=== PATIENT | female | born 1960 | race Caucasian/White ===

== ENCOUNTER 2021-02-06 10:12 | Inpatient (IN) | payer OTHER ==
[~2021-02-06] VITALS: Ht 167.6 cm; Wt 87.1 kg
--- NOTE | 2021-02-06 11:25 | NUR ---
PATIENT WAS TESTED FOR COVID 19 ON 02/05/21 AND WAS NEGATIVE - SRS-CoV-2 RNA (BRIA).
[2021-02-06 19:14] VITALS: BP 126/48
--- NOTE | 2021-02-06 23:36 | NUR ---
ASSUMED CARE OF PT AT 1915. PT IS A&OX4. IS STABLE. DENIES PAIN. IS ON 3L OF O2/NC. PT IS UP WITH MAX ASSIST OF 2-3, GB, STAND PIVOT. FALL PRECAUTIONS & HOURLY ROUNDING CONTINUED THIS SHIFT. PT IS TURNED Q2H. HEELS OFF LOADED. SCDS IN PLACE. HAS 2 OPEN AREAS IN THE INTERDGUTEAL FOLDS. BARRIER CREAM APPLIED. DAY NURSE REPORTED HAVING TAKING PICTURES & PLACED IN THE CHART. NICOTINE PATCH TO R SHOULDER. LIDOCAINE PATCH TO MID CHEST REMOVED. PT IS INCONTINENT TO BOTH B&B. REPORTED NOT ABLE TO FEEL WHEN NEEDS TO URINATE/HAVE A BM, NEITHER CAN FEEL WHEN HAS GONE. FREQUENT CHECKS CONDUCTED. PT COULD NOT RECALL DOSAGES OF HOME MEDICATIONS. REPORTED TAKES METROPOLOL DAILY, LASIX DAILY, AND A STATIN AT HS (NOT SURE WHICH). PT REPORTED SHE HAS NKA/NKDA. PHARMACY ENTERED. PT IS CURRENTLY SLEEPING. CALL LIGHT WITHIN REACH. WILL CONTINUE TO MONITOR.
--- NOTE | 2021-02-07 04:42 | NUR ---
AT APPROXIMATELY 0335. THIS NURSE WENT TO CHECK ON THE PT. SOMEONE FROM LAB HAS JUST COMPLETED DRAWING LABS FOR PT WHEN THE PT STATED, "I AM HAVING A HARD TIME BREATHING". PT REEPORTED ONSET POST LAB DRAW, ALONG WITH "RIB PAIN WHEN BREATHING THAT FEELS LIKE TIGHTNESS". THE PT DENIED HAVING SYMPTOMS IN THE PAST. PT ALSO DENIED RADIATING PAIN, MORTON, & ANY OTHER SYMPTOMS. THIS NURSE ASSESSED THE PT & VITALS WHICH WERE BP 175/75, HR 83, RR 25 & LABORED, O2 SAT 96% ON 2L/NC, & TEMP 98.2. PT BECAME DIAPHORETIC. THIS NURSE CONTACTED THE [facility] & CALLED A RAPID RESPONSE. THE TEAM ARRIVED IN A MATTER OF MINUTES. APPROPRIATE LABS, IMAGING STUDIES, & INTERVENTIONS WERE INITIATED & CARRIED OUT. THE PT IS NOW RESTING IN BED WITH THE HOB ELEVATED, HEELS OFF LOADED, & IS NOT IN ANY APPARENT DISTRESS. SHE REPORTS EASE OF BREATHING, & REPORTS PAIN IN DIAPHARGM/RIB AREA 5/10. STATES, "IT STILL FEELS KIND OF TIGHT UP IN HERE", SHE DEMONSTATES A HAND GESTURE ACROSS THE UPPER ABDOMINAL REGIONS. PT REMAINS WITH INTERMITTENT COUGH. WILL CONTINUE TO MONITOR. CALL LIGHT WITHIN REACH. THIS NURSE IS AT BEDSIDE.
--- NOTE | 2021-02-07 04:45 | NUR ---
SNAP ATTACHER ACTIVATED FOR CHEST PAIN, SOA, AND MILD NAUSEA. SEE RAPID RESPONSE DOCUMENTATION FOR FURTHER DETAILS. PT REMAINED ON THE UNIT.
[2021-02-07 06:12] LABS: HEMATOCRIT 23.3 % (37.0-47.0); HEMOGLOBIN 7.3 gm/dL (12.0-15.0); MCH 24.7 pg (26.0-34.0); MCHC 31.4 g/dL (28.0-37.0); MCV 78.6 fL (80.0-100.0); RBC 2.96 mil/uL (4.20-5.00); RDW 17.9 % (10.5-14.5); WBC 5.7 thou/uL (4.0-11.0)
[2021-02-07 06:39] LABS: CREATININE 0.8 mg/dL (0.6-1.0)
[2021-02-07 06:56] LABS: FOLIC ACID 14.3 ng/mL (8.6-58.9)
--- NOTE | 2021-02-07 07:11 | EKG ---
[address] [address] ELECTROCARDIOGRAM REPORT Name: DIONICIO TELLEZ Denisse Room #: 506-1 ADM IN M.R.#: [id number] Admission: 02/06/21 Attend Phys: Rick Mcdaniel MD Discharge: Date of : 56 Report #: [id number] [facility] Test Date: 2021-02-07 Test Time: 03:54:23 Pat Name: DIONICIO TELLEZ Department: Room: [facility] Gender: F Professor Of Management: ALTON : 1960 Requested By: Jelena Garcia Order Number: [id number] MD: Hai Layton Measurements Intervals [place] Rate: 77 P: 59 WV: 166 QRS: 10 QRSD: 144 T: 137 QT: 398 QTc: 451 Interpretive Statements Sinus rhythm Probable left atrial enlargement Left bundle branch block No previous ECG available for comparison Electronically Signed On 02-07-2021 7:10:59 CAB SUPERVISOR by Hai Layton [email or web address] <ELECTRONICALLY SIGNED> By: Hai Layton MD, [facility] 02/07/21 0710 0354 0354 Hai Layton MD, FACC /EPI
[2021-02-07 08:00] VITALS: BP 147/67
--- NOTE | 2021-02-07 10:00 | NUR ---
WOUND CONSULT; THE SACRUM REGION HAS AREAS CONSISTANT WITH PRESSURE BUT CANNOT R/O FRICTION THE ORIGION OF THIS WOUND. RED WOUND BED NO S/S OF INFECTION SEEN. THE PERIWOUND IS WNL. RECOMMENDATIONS; -APPLY ZGUARD TO WOUND BED, COVER WITH A SACRAL FOAM CHANGE M/W/F AND PRN. -TURN THIS PATIENT Q2H AT A MINIMUM. -LOW AIR LOSS PUMP. RN NOT AVAILABLE.
--- NOTE | 2021-02-07 10:58 | NUR ---
direct admit [facility] inpatient [facility], hospitalization to acute on chronic respiratory failure. Patient with past medical history known , recent cardiac arrest 01/14 status post CPR requiring intubation/ extubation, history of bilateral pleural effusion, history of GI bleed, history of CHF, htn, and ckd , history of smoking, chronic bilateral lower extremity weakness, history of A. fib with RVR, history of thrombocytopenia. Patient [facility] 01[facility]2021 shortness of breath, dyspnea on exertion couple weeks prior to admission. In the LBBB, inferior lateral T wave inversion, no recent ischemic evaluation. 01/13 with hematemesis requiring transfer to the ICU complicated by PEA arrest requiring subsequent intubation. extubated on 01/17/2021. Prior to hospital she was living at home with her . In house, have ramp. No steps she must do. Has cane, walker, and wheelchair. Legally blind. Current requiring O2 per nasal cannula and not ever needed home oxygen before. No rehab or hh in the past. Noted spouse not able to provide a lot of physical assists if needed. Geovany [facility] has already accepted her for some [facility] [place] health visits at [place].
[2021-02-07 11:55] VITALS: BP 147/67
--- NOTE | 2021-02-07 12:07 | NUR ---
LATE ENTRY 02/06 1800 PT ARRIVED TO UNIT 1645. PT A&OX4. PT MAX ASSIST X2 FROM WC TO BED. PT IS A POOR HISTORIAN FAR MEDICAL HX. PT ON 3L NC. DENIES SOA OR PAIN. ADMISSION ASSESSEMTN COMPLETED. WILL CONTNIUE TO MONITOR.
--- NOTE | 2021-02-07 12:42 | NUR ---
Nutrition: pt admitted with rehab unit with metabolic encephalopathy, AE CHF. Reports recent decreased appetite but no weight loss. S/P hospital stay including cardiac arrest, intubation and post dysphagia. ST eval ordered. Pt currently on mechanically altered chopped diet with honey thick liquids. Had been eating ensure pudding but would prefer magic cup. RD will offer daily. Current intake fair, > 50% of meals. Sacral pressure ulcer vs friction noted. On marinol. B12 and folate WNL. Place as low risk with interventions in place.
[2021-02-07 13:43] LABS: HEMATOCRIT 25.2 % (37.0-47.0); HEMOGLOBIN 7.8 gm/dL (12.0-15.0)
--- NOTE | 2021-02-07 19:25 | NUR ---
I have reviewed the documentation by LARISSA OLIVARES from 02/07/21 to 02/07/21 and I concur with it. DAVE BARNES
[2021-02-07 19:45] VITALS: BP 165/79
[2021-02-08 01:06] LABS: GLYCOHEMOGLOBIN (HGB A1C) 6.1 % (4.8-5.6)
--- NOTE | 2021-02-08 04:24 | NUR ---
PT ASSESSMENT COMPLETED AND VSS. MEDS GIVEN ORDERED AND WELL TOLERATED. FALL PRECAUTIONS IN PLACE. TOP DENTURES CLEANED AND SOAKING. ASST WITH REPOSITION FOR COMFORT. ZGUARD APPLIED TO PRESSURE AREAS. SLEEPING WELL. SAT WNL ON NC. PT DENIES NEEDS. WILL CONTINUE TO MONITOR FREQUENTLY.
[2021-02-08 05:53] LABS: HEMOGLOBIN 7.3 gm/dL (12.0-15.0)
--- NOTE | 2021-02-08 07:55 | NUR ---
BLADDER SCANNED PT THIS MORNING. SCAN SHOWED 410. ASST PT TO BSC WITH MAX TWO ASST/GAIT. PT WAS VERY WEAK AND A FULL MAX TRANSFER TO THE BSC. PT HAD A VERY LARGE SOFT BROWN UNFORMED STOOL. PT WAS NOT ABLE TO VOID. ZGUARD APPLIED TO PRESSURE WOUND ON BOTTOM. PT WAS VERY SOA AFTER GETTING TO THE BSC. SAT DROPPED TO 85 ON 3L NC. PT WAS VERY ANXIOUS AND SAID SHE WAS NOT ABLE TO BREATH. CONTACTED RT FOR A BREATHING TREATMENT. PT STATES THE TREATMENT WAS HELPFUL. CONTACTED ENGINEERING PATTERNMAKER SHANEKA. PER ORDERS STRAIGHT CATH COMPLETED AND 400 OUT. INFORMED DAY RN. PT HAD ANOTHER VERY LARGE UNFORMED STOOL AGAIN.
[2021-02-08 08:00] VITALS: BP 147/65
[2021-02-08 10:25] VITALS: BP 147/65
--- NOTE | 2021-02-08 12:31 | NUR ---
PT WORKED WITH OT OXYGEN SAT AT 94%. PT TOLERATING CHOPPED DIET, THIN LIQUIDS. PT DOES TAKE PILLS WHOLE ONE AT A TIME WITH HONEY THICK LIQUIDS. WILL CONTINUE TO MONITOR.
[2021-02-08 19:25] VITALS: BP 156/72
--- NOTE | 2021-02-08 21:35 | NUR ---
ASSUMED CARE OF PT AT 1915. PT IS A&OX4. IS LEGALLY BLIND. IS STABLE. DENIES PAIN. IS ON 2L O2/NC. DENIES SOB OR CHEST PAIN. IS UP WITH MAX ASSIST OF 1-2, GB, WALKER. FALL PRECAUTIONS & HOURLY ROUNDING CONTINUED THIS SHIFT. Q2H TURNS. HEELS OFF LOADED. ON LOW AIR LOSS BED. BARRIER CREAM BEING APPLIED TO WOUND ON BOTTOCKS & LEFT BETSY ORDERED. CALL LIGHT WITHIN REACH. WILL CONTINUE TO MONITOR.
[2021-02-09 08:00] VITALS: BP 169/73
--- NOTE | 2021-02-09 09:25 | NUR ---
PT UP IN W/C THIS AM. PT WAS SOB THIS AM WHEN SITTING UP THIS AM AND OXYGEN SAT WAS 89% ON 2L NC. INCREASED OXYGEN TO 3L NC, PT SAT UP IN 92%. PT HAS CRACKLES TO LLL AND RLL, NO COUGH NOTED. PT WAS ABLE TO TAKE MEDS WITH THICKENED WATER WITHOUT ANY ISSUES. PT STATED SOME DISCOMFORT TO CHEST FROM PREVIOUS CONPRESSIONS.
--- NOTE | 2021-02-09 13:57 | NUR ---
Cont. to assist with discharge planning needs. Geovany [facility] is following if needed for [facility] at discharge.
--- NOTE | 2021-02-09 16:24 | NUR ---
I have reviewed the documentation by SHIVAM OLIVARES from 02/08/21 to 02/09/21 and I concur with it. FRANKLYN TRONCOSO
[2021-02-09 19:13] VITALS: BP 138/62
--- NOTE | 2021-02-10 00:09 | NUR ---
PT ASSESSMENT COMPLETED AND VSS. MEDS GIVEN ORDERED AND WELL TOLERATED. FALL PRECAUTIONS IN PLACE. UP IN CHAIR EARLY DURING THE SHIFT. 2 MAX TRANSFER TO THE BED AT . ASST WITH REPOSITION FOR COMFORT. ZGUARD APPLIED TO BOTTOM WOUND. PT SLEEPING WELL. SAT WNL ON NC. WILL CONTINUE TO MONITOR FREQUENTLY.
[2021-02-10 10:40] LABS: HEMATOCRIT 25.3 % (37.0-47.0); HEMOGLOBIN 8.1 gm/dL (12.0-15.0)
--- NOTE | 2021-02-10 17:13 | NUR ---
PT ALERT AND ORIENTED TIMES FOUR. VSS. PT DENIES PAIN. PT DOES GET SOA ON EXCERTION. PT TOLERATES MEDS AND MEALS. PT WORKED WELL WITH PT/OT TODAY. PT UP IN WC FOR MOST OF THE DAY. PT PROGRESSING TOWRADS POC GOALS.
[2021-02-10 19:44] VITALS: BP 167/64
--- NOTE | 2021-02-11 03:07 | NUR ---
POT TRANSFERRING FROM WC TO BED WITH MAX ASSIST AND IS TOLERATING FAIR. DENIES PAIN. RESTING COMFORTABLY. NO NEEDS VOICED. CALL LIGHT WITHIN REACH. FREQUENT OBSERVATION.
--- NOTE | 2021-02-11 08:38 | NUR ---
PT LYING IN BED THIS AM. PT HAS EDEMA TO LE BILATERALY UP TO THIGHS, PT NEEDED TO VOID, GOT BED BEST FOR PT DUE TO URGENCY. PT HAS SLIGHT CRACKLES TO BASES BILATERALY. PT STATED SHE HAD PAIN TO LE THIS AM, PAIN LEVEL TO LEGS IS 2 AT THIS TIME. PT DENIES ANY PAIN TO STERNUM, REFUSED LIDOCAINE PATCH. PT HAS OXYGEN ON 2L NC. PT GETS SOA WITH ACTIVITY. PT STATED THAT THIS ILLNESS TAKES ALOT OUT OF YOU.
[2021-02-11 08:47] VITALS: BP 145/56
--- NOTE | 2021-02-11 12:00 | NUR ---
PT GETTING PHILLIP HOSE PLACED ON TO KNEES BILATERALY PER THERAPY. PT NEEDED LARGE SIZE.
[2021-02-11 19:57] VITALS: BP 159/80
--- NOTE | 2021-02-11 23:19 | NUR ---
PT ASSESSMENT COMPLETED AND VSS. MEDS GIVEN ORDERED AND WELL TOLERATED. FALL PRECAUTIONS IN PLACE. ASST WITH REPOSITION FOR COMFORT. ZGUARD APPLIED TO PRESSURE WOUND. SAT WNL ON NC. PT APPEARS COMFORTABLE AND IS TIRED THIS EVENING. PT REFUSED SCDS. EYE DROPS GIVEN. SLEEPING WELL. WILL CONTINUE TO MONITOR FREQUENTLY.
[2021-02-12 08:00] VITALS: BP 169/70
--- NOTE | 2021-02-12 12:15 | NUR ---
WOUND CARE F/U; THE COCCYX WOUND WAS ASSESSED TODAY AND IT IS FRAGIALLY HEALED TODAY. THE HEELS WERE ASSESSED AND NO WOUNDS WERE IDENTIFIED. CONTINUE CURRENT ORDER NO CHANGES.
--- NOTE | 2021-02-12 16:21 | NUR ---
Pt A & O x4. Pt VS stable. Pt worked with PT/OT this shift. Pt currently on 2L of 02 per nasal cannula. pt received medications as ordered. pt denied pain/discomfort this shift. Pt uses wheelchair with mobility noted. Pt is able to make needs known
[2021-02-12 19:34] VITALS: BP 155/85
--- NOTE | 2021-02-13 00:25 | NUR ---
PT ASSESSMENT COMPLETED AND VSS. MEDS GIVEN ORDERED AND WELL TOLERATED. FALL PRECAUTIONS IN PLACE. PT REFUSED SUPPOSITORY THIS EVENING FOR CONSTIPATION BUT WAS WILLING TO TAKE THE SENNA/COLACE/AND MIRALAX. ASST WITH REPOSITION FOR COMFORT. SLEEPING WELL. WILL CONTINUE TO MONITOR FREQUENTLY.
[2021-02-13 06:50] VITALS: BP 250/130
--- NOTE | 2021-02-13 06:50 | NUR ---
PT WAS COMPLAINING OF CHEST PRESSURE TO MID ABD LIKE A BAND AND SOB, PT OXYGEN ON 3.5L NC SATING 89%. PT HAS INCREASED RESP RATE AT 28, BP TAKIN MANUAL TO RT AND LEFT ARM, SHOWING 250/130. RAPID RESPONSE CALLED FOR PT IN DISTRESS. VS 97.8, 250/130 MANUAL, 28R, 89%, AND PULSE 149. AMIODARONE 200MG GIVEN PO AND LASIX 40MG PO GIVEN.
[2021-02-13 07:03] VITALS: BP 220/120
--- NOTE | 2021-02-13 07:03 | NUR ---
BP RECHECKED 220/120, 124PULSE. PT RULSE RATE 139 AND OXYGEN SAT 97%, RT IN ROOM FOR TREATMENT.
[2021-02-13 07:12] VITALS: BP 154/86
--- NOTE | 2021-02-13 07:12 | NUR ---
PT PER MACHINE 154/86, AND PULSE 110.
[2021-02-13 07:17] LABS: HEMATOCRIT 30.8 % (37.0-47.0); HEMOGLOBIN 9.7 gm/dL (12.0-15.0); MCH 24.9 pg (26.0-34.0); MCHC 31.4 g/dL (28.0-37.0); MCV 79.1 fL (80.0-100.0); RBC 3.89 mil/uL (4.20-5.00); RDW 19.5 % (10.5-14.5); WBC 10.1 thou/uL (4.0-11.0)
--- NOTE | 2021-02-13 07:20 | NUR ---
PT RECIEVED HYDROLAZINE 10MG IV AND CARDS CONSULTED.
[2021-02-13 07:25] LABS: CALCIUM 9.2 mg/dL (8.5-10.1); CREATININE 0.8 mg/dL (0.6-1.0); POTASSIUM 4.1 mmol/L (3.5-5.1)
--- NOTE | 2021-02-13 08:01 | EKG ---
[address] [address] ELECTROCARDIOGRAM REPORT Name: DIONICIO TELLEZ Room #: 506-1 ADM IN .R.#: [id number] Admission: 02/06/21 Attend Phys: Rick Mcdaniel MD Discharge: Date of : 56 Report #: [id number] [facility] Test Date: 2021-02-13 Test Time: 07:38:10 Pat Name: DIONICIO TELLEZ Department: Room: [facility] Gender: F Mammalogy Teacher: JOANNA : 1960 Requested By: González Patel Order Number: [id number] MD: Hai Layton Measurements Intervals [place] Rate: 89 P: 66 UT: 159 QRS: 24 QRSD: 138 T: 175 QT: 387 QTc: 471 Interpretive Statements Sinus rhythm Left atrial enlargement Left bundle branch block Compared to ECG 02/13/2021 06:54:47 Atrial abnormality now present Atrial flutter no longer present Electronically Signed On 02-13-2021 8:01:34 PLASTIC TUBING INSULATION SUPERVISOR by Hai Layton [email or web address] <ELECTRONICALLY SIGNED> By: Hai Layton MD, [facility] 02/13/21800 7 7 Hai Layton MD, [facility] /EPI
--- NOTE | 2021-02-13 08:01 | EKG ---
[address] [address] ELECTROCARDIOGRAM REPORT Name: DIONICIO TELLEZ Denisse Room #: 506-1 ADM IN .R.#: [id number] Admission: 02/06/21 Attend Phys: Rick Mcdaniel MD Discharge: Date of : 56 Report #: [id number] [facility] Test Date: 2021-02-13 Test Time: 06:54:47 Pat Name: DIONICIO TELLEZ Department: Room: [facility] Gender: F Pipe Jeeper: JOANNA : 1960 Requested By: Jelena Garcia Order Number: [id number] MD: Hai Layton Measurements Intervals [place] Rate: 138 P: FL: QRS: 31 QRSD: 141 T: 174 QT: 309 QTc: 469 Interpretive Statements Suspect Atrial flutter Left bundle branch block Baseline wander in lead(s) V2,V3,V5,V6 Compared to ECG 02/07/2021 03:54:23 Sinus rhythm no longer present Electronically Signed On 02-13-2021 8:01:29 COMPUTER FORENSICS INVESTIGATOR by Hai Layton [email or web address] <ELECTRONICALLY SIGNED> By: Hai Layton MD, [facility] 02/13/21 0801 0654 0654 Hai Layton MD, [facility] /EPI
[2021-02-13 08:30] LABS: % SATURATION 16 % (20-39); IRON 37 ug/dL (50-170); TIBC 228 ug/dL (250-450)
--- NOTE | 2021-02-13 08:30 | NUR ---
PT OFF TO CT SCAN VIA BED. PT USING BED BEST AND WITH EACH ROLL, PT GETS SOB.
--- NOTE | 2021-02-13 09:39 | NUR ---
ROUNDED ALL NIGHT ON PT. THIS MORNING WHEN ROUNDING ON PT AT 0635 SHE C/O SOA. PT WAS IN DISTRESS. PT STATED THAT SHE COULD NOT BREATH. SHE STATED THAT SHE HAD CHEST PRESSURE AND THAT SHE FELT LIKE SHE HAD A BAND AROUND HER CHEST. BP WAS TOO HIGH AND BP MACHINE WOULD NOT READ PRESSURE. PULSE IN THE 140S. CALLED A RAPID RESPONSE FOR PATIENT. RAPID TEAM STARTED AN IV, RT TREATMENTS, LASIX 40 PO, HYDRALIZINE 10 IVP, AND AMIDORONE 200 GIVEN. AT 0650 P 149, 89% SAT, R 28, 250/130 MANUAL AND T 97.8. AT 0703 BP 220/120. RT TREATMENTS GIVEN. PIV STARTED. CONSULT TO CARDIOLOGY CALLED. TATIANNA IN TO SEE PT. PT WAS IMPROVED AND RECHECK OF EKG NSR. CT SCAN COMPLETED AND PENDING. PT MAY STAY ON 5NORTH. REPORT GIVEN TO DAY RN. SHE WILL TAKE OVER PT CARE AT THIS TIME.
--- NOTE | 2021-02-13 09:46 | NUR ---
PT STATED SHE FEELS BETTER AT THIS TIME. LASIX WAS GIVEN 40MG IV X1 AND ALSO KDUR 40MEQ PO X1. PT HAS NEW IV SITE TO LEFT AC FROM [facility] FOR THE CT SCAN. PT OXYGEN DOWN TO 3L NC. PT WAS SEEN BY THE MEDICAL DR. DIMAS, DWAYNE ACCOUNT CONTACT ASSOCIATE, AND HARDEEP DUPREE.
--- NOTE | 2021-02-13 11:17 | 2DMMODE ---
[facility] [place] [address] 2 D/M-MODE ECHOCARDIOGRAM Name: DIONICIO TELLEZ Room #: 506-1 ADM IN M.R.#: [id number] Admission: 02/06/21 Attend Phys: Rick Mcdaniel MD Discharge: Date of : 56 Report #: [id number] THIS REPORT FOR: cc: Carla Devi MD, Ashley L. MD Lammoglia, Francisco J. MD ~ APPROVED REPORT Study performed: 02/13/2021 10:29:59 EXAM: Comprehensive 2D, Doppler, and color-flow Echocardiogram Patient Location: Rehab unit Room #: 506 Status: routine BSA: 1.96 HR: 82 bpm BP: 156/86 mmHg Rhythm: NSR Other Information Study Quality: Good Indications Atrial flutter 2D Dimensions RVDd: 30.21 mm IVSd: 9.66 (7-11mm) LVOT Diam: 19.49 (18-24mm) LVDd: 50.18 mm PWd: 10.15 (7-11mm) Ascending Ao: 25.46 (22-36mm) LVDs: 37.49 (25-40mm) Left Atrium: 34.64 (27-40mm) Aortic Root: 28.56 mm IVC: 16.00 mm Volumes Left Atrial Volume (Systole) Single Plane 4CH: 49.35 mL Single Plane 2CH: 30.90 mL LA ESV Index: 23.00 mL/m2 Aortic Valve AoV Peak Will.: 1.42 m/s AO Peak Gr.: 8.07 mmHg LVOT Max P.42 mmHg LVOT Max V: 1.16 m/s ЕКАТЕРИНА Vmax: 2.44 cm2 [facility] [place] [address] [address] [place] [address] 2 D/M-MODE ECHOCARDIOGRAM Name: DIONICIO TELLEZ Room #: [address] [place] [address] [place] [facility].#: [id number] Admission: 02/06/21 Attend Phys: Rick Mcdaniel, Discharge: Date of : 56 Report #: [id number] Pulmonary Valve PV Peak Will.: 1.30 m/s PV Peak Gr.: 6.79 mmHg Left Ventricle The left ventricle is normal size. There is normal LV segmental wall motion. There is normal left ventricular wall thickness. Left ventricular systolic function is borderline normal LVEF is 50%. Grade I - abnormal relaxation pattern. Right Ventricle The right ventricle is normal size. The right ventricular systolic function is normal. Atria The left atrium size is normal. The right atrium size is normal. Aortic Valve The aortic valve is normal in structure. No aortic regurgitation is present. There is no aortic valvular stenosis. Mitral Valve The mitral valve is normal in structure. Mild mitral regurgitation. No evidence of mitral valve stenosis. Tricuspid Valve The tricuspid valve is normal in structure. There is no tricuspid valve regurgitation noted. Pulmonic Valve The pulmonary valve is normal in structure. There is no pulmonic valvular regurgitation. Great Vessels The aortic root is normal in size. IVC is normal in size and collapses >50% with inspiration. Pericardium Trace pericardial effusion. <Conclusion> The left ventricle is normal size. There is normal LV segmental wall motion. LVEF is 50%. The right ventricle is normal size. [facility] [address] [place] [address] 2 D/M-MODE ECHOCARDIOGRAM Name: DIONICIO TELLEZ Room #: 506-1 [facility] IN ..#: [id number] Admission: 02/06/21 Attend Phys: Rick Mcdaniel, Discharge: Date of : 56 Report #: [id number] The aortic valve is normal in structure. The mitral valve is normal in structure. Mild mitral regurgitation. The tricuspid valve is normal in structure. The pulmonary valve is normal in structure. The aortic root is normal in size. Trace pericardial effusion. <ELECTRONICALLY SIGNED> By: Osman Coreas MD 02/13/211116 16 16 Osman Coreas MD /INF
--- NOTE | 2021-02-13 11:25 | NUR ---
URINE SENT FOR UA DUE TO FOUL ODOR.
[2021-02-13 12:33] LABS: URINE BILIRUBIN NEGATIVE (Negative); URINE BLOOD 1+ (Negative); URINE COLOR YELLOW; URINE GLUCOSE-RANDOM* NEGATIVE (Negative); URINE KETONES NEGATIVE (Negative); URINE LEUKOCYTES-REFLEX TRACE (Negative); URINE PROTEIN (DIPSTICK) NEGATIVE (Negative); URINE SPECIFIC GRAVITY 1.015 (1.005-1.035); URINE UROBILINOGEN 0.2 E.U./dl (0.2-1.0)
[2021-02-13 12:34] LABS: URINE CLARITY HAZY; URINE NITRITE-REFLEX POSITIVE (Negative)
--- NOTE | 2021-02-13 12:49 | NUR ---
Team meeting, recommendation: had rapid response this morning. ID consult, IV Lasix, had ekg, CT of lungs. Cariology consulted. Barrier cream to coccyx. mod assist for lower body dressing. 13ft for FWW with wheel chair behind. moderate cognitive deficits, mod to sever memory. Mech soft chopped diet, thin liquid. Still requiring oxygen, possible will need home o2 at dc. Re team with anticipated dc 02/23, possible will need ltc , check into [facility], since pat
[2021-02-13 12:53] LABS: CASTS None Seen /LPF (None Seen); SQUAMOUS 0-3 Few /LPF (0-3)
[2021-02-13 12:54] LABS: BACTERIA-REFLEX >30 Many /HPF (None Seen); CRYSTALS None Seen /LPF (None Seen); URINE RBC 1-2 Rare /HPF (NONE SEEN); URINE WBC-REFLEX 0-5 Rare /HPF (0-5)
--- NOTE | 2021-02-13 18:27 | NUR ---
I have reviewed the documentation by LARISSA OLIVARES from 02/12/21 to 02/12/21 and I concur with it. DAVE BARNES
--- NOTE | 2021-02-13 18:27 | NUR ---
PT STATED SHE IS FEELING BETTER AND SOA IS LESS WITH TURNING. APPLIED A PURWICK FOR COMFORT AND TO MONITOR OUTPUT. PT DIDN'T WANT TO EAT ANY BREAKFAST OR LUNCH TODAY. PT LEGS ELEVATED IN BED AND PHILLIP HOSE ARE ON.
[2021-02-13 19:22] VITALS: BP 148/84
--- NOTE | 2021-02-13 21:08 | NUR ---
ASSUMED CARE OF PT AT 1915. PT IS A&OX4. REPORTED LEGAL BLINDNESS; IS ABLE TO SEE SHADOWS ONLY. IS ON 3L O2/NC WITH HUMIDIFICATION. DENIES SOB AT THIS TIME OR CHEST PAIN. IS STABLE. REPORTS BILAT LE PAIN 8/10 BEFORE TYLENOL WAS ADMINISTERED & 6/10 UPON REASSESSMENT. PT REPORTED WAKING UP WITH THE PAIN. THERAPUETIC TECHNIQUES PROVIDED. HAS WOUND ON BUTTOCKS THAT WE ARE CONTINUING ORDERED TREATMENT ON. OPEN TO AIR. Q2H TURNS. SEE APPROPRIATE SECTIONS OF CHART FOR FURTHER DETAILS. IS ON LOW AIR LOSS MATTRESS. IS UP WITH 1-2 ASSIST, GB, WALKER. FALL PRECAUTIONS & HOURLY ROUNDING CONTINUED THIS SHIFT. LABS & VITALS REVIEWED. TEDS REMOVED. SCD INPLACE. PURE WICK IN PLACE. PT IS IN BED WATCHING TV. CALL LIGHT WITHIN REACH. WILL CONTINUE TO MONITOR. ALL NEEDS MET AT THIS TIME. TAKE MEDS WHOLE, 1 AT A TIME IN [place].
[2021-02-14 06:08] LABS: CALCIUM 8.7 mg/dL (8.5-10.1); CREATININE 0.9 mg/dL (0.6-1.0); POTASSIUM 4.2 mmol/L (3.5-5.1)
[2021-02-14 07:36] VITALS: BP 144/68
--- NOTE | 2021-02-14 08:55 | HC ---
[facility] [place] [address] CONSULTATION Name: DIONICIO TELLEZ Room #: 506-1 ADM IN M.R.#: [id number] Admission: 02/06/21 Attend Phys: Rick Mcdaniel MD Discharge: Date of : 56 Report #: [id number] THIS REPORT FOR: cc: Carla Devi MD, Ashley L. MD Althoff,Michael Peraza MD ~ DATE OF SERVICE: 02/07/2021 CHIEF COMPLAINT: Sacral pressure ulceration. HISTORY OF PRESENT ILLNESS: This is a 60-year-old female patient who was admitted to the rehab unit from [facility]. She has had a prolonged hospitalization with chronic respiratory failure and hypercapnia. She has an underlying history of COPD. She did sustain a cardiac arrest on 01/14/2021 with spontaneous return of circulation. She was noted to have a stage II sacral ulcer. I have been asked to see her with regard to wound care. PAST MEDICAL HISTORY: Positive for history of congestive heart failure, GI bleeding, hypertension, hyperlipidemia, chronic kidney disease, history of tobaccoism, bilateral lower extremity weakness, atrial fibrillation with rapid ventricular response as well as history of cardiopulmonary arrest, COPD, respiratory failure and prolonged hospitalization. ALLERGIES: No known drug allergies. MEDICATIONS: Includes potassium, amiodarone, aspirin, docusate, furosemide, lidocaine, dronabinol, pantoprazole, furosemide, polyethylene glycol. SOCIAL HISTORY: Unknown. FAMILY HISTORY: Noncontributory. REVIEW OF SYSTEMS: CONSTITUTIONAL: The patient denies fever, chills or weight loss. NEUROLOGICAL: The patient denies focal weakness, some tingling. EYES: The patient denies visual changes, redness, drainage. ENT: The patient denies earache, nasal drainage, and sore throat. CARDIOVASCULAR: The patient denies chest pain, palpitations, diaphoresis. PULMONARY: The patient denies cough or shortness of breath. GASTROINTESTINAL: The patient denies nausea or abdominal pain. ORTHOPEDIC: The patient is aware of the ulceration on her sacral region. Others systems in a 14-point review of systems are negative. PHYSICAL EXAMINATION: VITAL SIGNS: The patient's vital signs at this time include temperature 36.6, [facility] [address] [place] [address] CONSULTATION Name: DIONICIO TELLEZ Room #: 506-1 [facility] IN [facility]#: [id number] Admission: 02/06/21 Attend Phys: Rick Mcdaniel MD Discharge: Date of : 56 Report #: [id number] pulse 68, respirations 16, blood pressure 147/67. GENERAL: This is a somewhat chronically ill-appearing female patient who appears to be in no obvious distress. HEENT: Head normocephalic. Nose and throat are clear. LUNGS: Diminished. HEART: Irregular. ABDOMEN: Soft, bowel sounds present. Sacral region demonstrates what appears to be a stage III sacral pressure ulcer that is relatively shallow and does not appear to be infected. NEUROLOGIC: The patient is awake and does appear to have spontaneous movement. LABORATORY STUDIES: Include sodium 144, potassium 4.0, chloride 106, CO2 of 37, BUN 17, creatinine 0.8. White blood cell count 5.7, hemoglobin of 7.3. CLINICAL IMPRESSION: 1. Stage III sacral pressure ulceration. 2. History of cardiorespiratory failure, status post cardiac arrest and prolonged hospitalization. 3. History of atrial fibrillation. 4. History of hypertension. RECOMMENDATIONS: At this point in time, we will recommend topical barrier cream and otherwise the area can be left open to air. She will need q. 2 hour turning and positioning to offload the area and aggressive nutritional support. I appreciate being asked to see her in consultation. <ELECTRONICALLY SIGNED> By: Michael Hayes MD 02/14/21 0855 [id number] 14 Michael Hayes MD /nt
--- NOTE | 2021-02-14 09:43 | NUR ---
ASSUMED CARE AT 0700. PATIENT IS ALERT AND ORIENTEDX4. PATIENT IS LEGALLY BLIND. PATIENT ALCALA'S, HAT AND CAP DRYING ROOM ATTENDANT ARE EQUAL. LUNGS ARE CLEAR AND DEMINISHED ON THE RIGHT. 02 AT 3L PER N/C. PATIENT CONTINUES ON PO ABT'S WITHOUT ADVERSE AFFECTS. PATIENT HAS S.L. IN HER LEFT AC, AND LEFT WRIST. FALL AND SAFETY PROTOCOLS IN PLACE. C/O RESTLESS LEGS. PATIENT IS UP WITH MAX ASSIST OF 2 STAFF. PATIENT CONTINUES TO PROGRESS SLOWLY TOWARDS D/C GOALS. WILL CONTINUE TO MONITER.
--- NOTE | 2021-02-14 11:55 | NUR ---
Nutrition follow up: Pt with intakes improving and avg 75% across all meals. Goodintakes of magic cup noted. Weight appears stable. Stg II to sacral area, wound care following with tx orders in place. No BM recorded since 02/08, bowel regimen in place but note that miralax has not been administered since 02/12. Recommend reevaluate bowel regimen. Encourage fluids d/t constipation-honey thick restriction in place, however ST recs 02/13 for thin liquids. Rec follow up with ST for current diet order recs. Remains low nutrition risk with interventions in place.
--- NOTE | 2021-02-14 12:03 | NUR ---
Check diet order r/t liquid consistency recs from speech. Pt would benefit from improved hydration r/t constipation.
--- NOTE | 2021-02-14 12:42 | PLAN ---
[facility] [place] [address] REHAB UNIT PLAN OF CARE Name: DIONICIO TELLEZ Room #: 506-1 ADM IN M.R.#: [id number] Admission: 02/06/21 Attend Phys: Rick Mcdaniel MD Discharge: Date of : 56 Report #: [id number] THIS REPORT FOR: cc: Carla Devi MD, Ashley L. MD Smithson,Rick Garvey MD ~ PROGRESS NOTE/OVERALL PLAN OF CARE HISTORY OF PRESENT ILLNESS: The patient is seen back today in followup. She is pleasant, alert, appears to be in good spirits. Temperature 36.7, pulse 74, respirations 18, blood pressure 169/73. She is currently on 2 liters nasal prong O2. No focal calf swelling. She has been working in therapies and is max assist coming to stand, but once up, she has actually ambulated 9 feet min assist with a front-wheeled walker. In occupational therapy, upper body dressing is min assist with lower body dressing max assist. In speech therapy, she does have moderate cognitive deficits with moderate to severe memory deficits. She is on mechanical soft, thin liquid diet. ASSESSMENT: 1. Critical illness myopathy. 2. Cardiopulmonary failure. 3. Dysphagia with evaluation by Speech Therapy. 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 4. Hypertension. 5. Anorexia, on Marinol. 6. New onset atrial fibrillation. 7. Acute on chronic renal failure. 8. History of tobacco abuse. PLAN: The overall plan of care is based on the pre-admission screen and information garnered from therapy assessments. 1. Estimated length of stay is probably at least 2 weeks. 2. Medical prognosis is reasonably good. 3. Anticipated interventions includes the interdisciplinary acute inpatient rehabilitation program. 4. Anticipated functional outcomes would be for the patient to become improved and hopefully independent with basic sit to stand transfers and ambulation as well as ADLs and improved cognition as well as swallowing. The goal is to be able to reach her functional level, so she can return back home with her . 5. Discharge destination would be back home with her . There is a threshold to get into the house. 6. Expected therapy by discipline includes PT, OT and speech 1 hour per day each 5 days a week throughout the duration of the acute inpatient rehabilitation stay. [place] [id number] REHAB UNIT PLAN OF CARE Name: DIONICIO TELLEZ Room #: 506-1 [facility] IN .R.#: [id number] Admission: 02/06/21 Attend Phys: Rick Mcdaniel MD Discharge: Date of : 56 Report #: [id number] ADDENDUM: The patient's prognosis for significant practical improvement within a reasonable period of time appears good. Given the patient's complex medical condition and risk of further medical complication, rehabilitation services could not be safely provided at the lower level of care such as a detention facility. <ELECTRONICALLY SIGNED> By: Rick Mcdaniel MD 02/14/21 1242 [id number] 2059 Rick Mcdaniel MD /nt
--- NOTE | 2021-02-14 12:42 | H ---
[facility] [address] HISTORY AND PHYSICAL Name: DIONICIO TELLEZ Room #: 506-1 ADM IN M.R.#: [id number] Admission: 02/06/21 Attend Phys: Rick Mcdaniel MD Discharge: Date of : 56 Report #: [id number] THIS REPORT FOR: cc: Carla Devi MD, Ashley L. MD Smithson, David G. MD ~ DATE OF SERVICE: 02/06/2021 HISTORY OF PRESENT ILLNESS: This is a 60-year-old female originally admitted to [facility] on 01/09/2021 with complaints of worsening shortness of breath and intermittent lower extremity weakness over the past 6 months. Her course was complicated by cardiac arrest on 01/14/2021, requiring intubation. Her course was complicated by hematemesis, requiring transfer to the ICU, complicated by the PEA arrest with subsequent intubation. She was then extubated on 01/17/2021. Her course was complicated by atrial fibrillation with rapid ventricular rate for which she was placed on amiodarone drip. She was seen by Cardiology with recommendation to continue aspirin therapy. Poor candidate for oral anticoagulation. There is consideration for outpatient ischemic evaluation. She is noted to be significantly weak and debilitated with her ICU stay and multiple medical comorbidities with critical illness myopathy. She has now been admitted for acute in-hospital inpatient rehabilitation. ALLERGIES: No known drug allergies. MEDICATIONS: Please see the full medication listing. PAST MEDICAL HISTORY: There is a history of breast cancer. She has had a right mastectomy. She is status post laminectomy, legally blind, glaucoma, depression, history of thyroid cyst. SOCIAL HISTORY: She lives with her , house threshold to get in. He is retired per her history. She did not utilize gait aids premorbidly. I am uncertain how reliable her history is. REVIEW OF SYSTEMS: Noted to have a pressure ulcer per nursing. She did not offer any complaints of chest pain, shortness of breath or abdominal discomfort. Noted to have 2 open areas in the intergluteal fold per nursing evaluation. PHYSICAL EXAMINATION: GENERAL: The patient is a 60-year-old female in no obvious distress. VITAL SIGNS: Temperature 97.9, pulse 60, respirations 16, blood pressure 147/67. NEUROLOGIC: She is alert, follows basic 1-step commands. She is a limited historian as far as her medical history. She is on nasal cannula O2 at 3 liters. HEENT: Facies were symmetric. [facility] [address] [place] [address] HISTORY AND PHYSICAL Name: DIONICIO TELLEZ Room #: 506-1 [facility] IN [facility]#: [id number] Admission: 02/06/21 Attend Phys: Rick Mcdaniel MD Discharge: Date of : 56 Report #: [id number] CHEST: Some decreased breath sounds diffusely. CARDIAC: Sounds regular rate and rhythm. ABDOMEN: Bowel sounds are positive, nontender. GENITOURINARY AND RECTAL: Deferred. EXTREMITIES: She does have functional range of motion of both upper extremities with strength a grade 3-3+/5. Lower extremities functional range of motion with strength a grade 3+/5. DTRs are trace to 1. No focal calf swelling. She has been at least at a mod assist x2 for transfers prior to coming to rehabilitation. ASSESSMENT: A 60-year-old female with the following problem list: 1. Critical illness myopathy. 2. Cardiopulmonary failure. 3. Dysphagia to be evaluated by speech therapy. 4. To be evaluated wound care team. 5. Hypertension. 6. Anorexia. She is on Marinol. 7. New onset atrial fibrillation. 8. Acute on chronic renal failure. 9. History of tobacco abuse. 10. Prior history of breast cancer. PLAN: The patient has been admitted for acute in-hospital inpatient rehabilitation. Please see the above noted comorbidities. The initial plan of care involves the interdisciplinary acute inpatient rehabilitation program with the goal of maximizing her functional independence, so she can hopefully return back to her prior living situation. Measurable functional goals would be for the patient to improve as far as transfers, mobility and ADLs and to improve as far as swallowing, so that she can return back to the home setting. Prognosis is reasonably good. ESTIMATED LENGTH OF STAY: Probably at least 2 weeks Potential barriers would include her multiple medical comorbidities and decreased functional status. The patient's diagnosis is appropriate for an acute in-hospital inpatient rehabilitation stay. She meets the medical necessity criteria. She does have the tolerance for therapies and has appropriate discharge goals back to the [address] [address] HISTORY AND PHYSICAL Name: DIONICIO TELLEZ Room #: 506-1 [facility] IN [facility]#: [id number] Admission: 02/06/21 Attend Phys: Rick Mcdaniel MD Discharge: Date of : 56 Report #: [id number] home setting. The hospitalist service has been consulted to follow regarding medical issues and wound care is to assist as well. <ELECTRONICALLY SIGNED> By: Rick Mcdaniel MD 02/14/21 1242 1322 1349 Rick Mcdaniel MD /nt
[2021-02-14 19:30] VITALS: BP 152/65
--- NOTE | 2021-02-15 02:38 | NUR ---
PATIENT CARE WAS RESUMED AT 1900. SHE IS ALER TA AND ORIENTED. SHE IS RESTING CALM IN BED WITH CALL LIGHT AT REACH. LUNGS ARE DIMINISHED AND A WHEEZING SOUND TO THE LEFT UPPERCHEST. SHE DENIES ANY ABNORMALFEELING OR CHANGE IN BREATHING. SHE IS ON ANTI-BIOTIC WITOUT ANY ADVERSE REACTION. SHE TOOK HER MEDS WHOLE. LEFT AC LOCK AND IV MEDS GIVEN PER ORDER. SHE IS CONTINENT OF BOWEL AND BLADDER. ABD IS SOFT AND NON TENDER. SHE IS A MAX ASSIT WITH CARE. CREAME IS APPLIED TO BUTTOCKS AREAS FOR PROTECTION. 02MAT 2L PER N/C AND NO SOA NOTED. Q HOURLY ROUNDS IS ONGOING. BED IS LOW AND LOCKED. PHILLIP HOSE ARE TAKEN OFF. YELLOW SOCKS ARE INPLACE.PATIENT IS REMINDED OF THE USE OF CALL LIGHT. CONTINUE CARE AND MONITOR.
--- NOTE | 2021-02-15 07:06 | EKG ---
[address] [address] ELECTROCARDIOGRAM REPORT Name: DIONICIO TELLEZ Room #: 506-1 ADM IN M.R.#: [id number] Admission: 02/06/21 Attend Phys: Rick Mcdaniel MD Discharge: Date of : 56 Report #: [id number] [facility] Test Date: 2021-02-14 Test Time: 15:51:41 Pat Name: DIONICIO TELLEZ Department: Room: [facility] Gender: F Grievance And Appeals Coordinator: FSCHWALKARISHMA : 1960 Requested By: Ria Lucas Order Number: [id number] MD: Hai Layton Measurements Intervals Imperial Rate: 59 P: 33 HI: 161 QRS: 1 QRSD: 150 T: 142 QT: 483 QTc: 479 Interpretive Statements Sinus rhythm Probable left atrial enlargement Left bundle branch block Baseline wander in lead(s) V6 Compared to ECG 02/13/2021 07:38:10 No significant changes Electronically Signed On 02-15-2021 7:06:17 RESIDENTIAL NURSE by Hai Layton [email or web address] <ELECTRONICALLY SIGNED> By: Hai Layton MD, FACC 02/15/21 [phone] Hai Layton MD, [facility] /EPI
[2021-02-15 08:00] VITALS: BP 157/69
--- NOTE | 2021-02-15 10:43 | NUR ---
ASSUMED CARE AT 0700. PATIENT IS ALERT AND ORIENTED X4. PATIENT ALCALA'S, LINE DRIVER ARE EQUAL. LUNGS ARE CLEAR AND DEMINISHED ON THE RIGHT. PATIENT CONTINUES ON 02 AT 3L PER N/C. PATIENT ENCOURAGED TO USE I.S. PATIENT CONTINUES ON RESPIRATORY TX. PATIENT IS LEGALLY BLIND. UP IN W/C FOR MEALS. PATIENT IS INCONTINENT OF URINE. UP TO THE C TO VOID RYAN COLORED URINE AND HAVE BM. PATIENT HAS S.L. IN HER LEFT AC. FALL AND SAFETY PROTOCOLS IN PLACE. DENIES PAIN AT THIS TIME. CONTINUES TO PROGRESS SLOWLY TOWARDS D/C GOALS. CONTINUES ON PO ABT WITHOUT ADVERSE AFFECTS. WILL CONTINUE TO MONITER.
--- NOTE | 2021-02-15 15:56 | NUR ---
Visited with her barrera via phone call. Education on [facility]. [place] 02/23 24hr/7 care and assist. tried to see if he could come in on 02/19/21 around 10am for family training with therapy. Is she not able to walk yet? I will have to see if my niece can come with me, i do not know how to get there. I work sometimes, i can care for her at home but do not have any other help at home. will have to see how she is doing before say if she needs to go for more therapy else where per barrera # [phone] home phone. Active listen and education on [facility], skilled and possible needing home oxygen at ia. Will cont following as needed
[2021-02-15 19:50] VITALS: BP 138/56
--- NOTE | 2021-02-15 23:49 | NUR ---
ASSUMED CARE OF PT AT 1915. PT IS A&OX4. IS LEGALLY BLIND. IS ON 3L OF O2/NC. DENIES SOB & CHEST PAIN. IS STABLE. DENIES PAIN AT THIS TIME. IS UP WITH ASSIST OF 1-2, GB, WALKER. FALL PRECATUIONS & HOURLY ROUNDING CONTINUED THIS SHIFT. LABS & VITALS REVIEWED. PT IS TURNED Q2H. HEELS OFFLOADED. CALL LIGHT WIHIN REACH. PT IS ASLEEP. WILL CONTINUE TO MONITOR.
[2021-02-16 04:51] LABS: ABSOLUTE NEUTROPHILS 9.8 thou/uL (1.4-8.2); BASOPHILS 0.1 % (0.0-2.0); HEMATOCRIT 23.4 % (37.0-47.0); LYMPHOCYTES 4.1 % (24.0-44.0); MCH 24.6 pg (26.0-34.0); MCHC 31.1 g/dL (28.0-37.0); MCV 78.9 fL (80.0-100.0); MONOCYTES 5.1 % (1.0-8.0); POLYS 90.7 % (36.0-66.0); RBC 2.96 mil/uL (4.20-5.00); RDW 20.5 % (10.5-14.5); WBC 10.8 thou/uL (4.0-11.0)
[2021-02-16 04:54] LABS: CALCIUM 8.3 mg/dL (8.5-10.1); MAGNESIUM 2.9 mg/dL (1.8-2.4); POTASSIUM 4.1 mmol/L (3.5-5.1)
[2021-02-16 04:55] LABS: HEMOGLOBIN 7.3 gm/dL (12.0-15.0); PLATELET COUNT 330 thou/uL (150-400)
[2021-02-16 08:00] VITALS: BP 142/69
--- NOTE | 2021-02-16 08:36 | NUR ---
[facility].
--- NOTE | 2021-02-16 16:58 | NUR ---
I have reviewed the documentation by SHIVAM OLIVARES from 02/14/21 to 02/16/21 and I concur with it. FRANKLYN TRONCOSO
[2021-02-16 19:40] VITALS: BP 146/59
--- NOTE | 2021-02-16 23:03 | NUR ---
PT ALERT AND ORIENTED X 4. TRANSFERRED FROM W/C TO TOILET AT START OF SHIFT WITH ASSIST X 2. 02 ON AT 1L PER NC CONT. PT TAKES MEDS IN [place]OGURT WITHOUT DIFFICULTY. PT DENIES PAIN OR DISCOMFORT. BED ALARM ON FOR SAFETY. PT APPEARS TO BE SLEEPING ON HOURLY ROUNDS.
[2021-02-17 06:03] LABS: HEMATOCRIT 25.1 % (37.0-47.0); HEMOGLOBIN 7.9 gm/dL (12.0-15.0); MCH 24.9 pg (26.0-34.0); MCHC 31.6 g/dL (28.0-37.0); MCV 78.8 fL (80.0-100.0); RBC 3.19 mil/uL (4.20-5.00); RDW 20.4 % (10.5-14.5); WBC 12.1 thou/uL (4.0-11.0)
[2021-02-17 07:15] VITALS: BP 174/88
[2021-02-17 07:30] VITALS: BP 174/88
[2021-02-17 19:35] VITALS: BP 152/69
--- NOTE | 2021-02-17 23:07 | NUR ---
PT ALERT AND ORIENTED X 4. 02 ON AT 2.5 L PER NC CONT. PT TAKES MEDS IN YOGURT WITHOUT DIFFICULTY. PT C/O PAIN IN HER LEGS. REFUSED PAIN MEDS. BED ALARM ON FOR SAFETY. PT APPEARS TO BE SLEEPING ON HOURLY ROUNDS.
[2021-02-18 07:15] VITALS: BP 155/68
--- NOTE | 2021-02-18 18:15 | NUR ---
Assumed Pt care at shift change, report received at bedside, assessment done and charted accordingly, labs reviewed, VSS, diuresis satisfactory, up with 1 assist, GB, uses bedside commode as well as walking to the restroom using FWW, no complaint of pain, BL LE edema ( 2+) noted, no c/o pain, sit on chair for feeding, takes pills whole with water, L AC IV rescued and patent, K replaced as ordered, Pt remains safe and comfortable, all saftey measures in place Will continue current therapy.
[2021-02-18 19:38] VITALS: BP 148/62
--- NOTE | 2021-02-19 02:58 | NUR ---
PT ASSESSMENT COMPLETED AND VSS. MEDS GIVEN ORDERED AND WELL TOLERATED. FALL PRECAUTIONS IN PLACE. UP TO THE BSC WITH ASST/GAIT. VOIDING LARGE AMOUNT OF YELLOW URINE. ZGUARD APPLIED TO SACRAL WOUND. ASST WITH REPOSITION FOR COMFORT. SLEEPING WELL. SAT WNL ON NC. WILL CONTINUE TO MONITOR FREQUENTLY. PT REFUSED SCDS.
[2021-02-19 05:32] LABS: ANION GAP < 0 mmol/L (7-16); BUN 36 mg/dL (7-18); CALCIUM 8.5 mg/dL (8.5-10.1); CHLORIDE 95 mmol/L (98-107); CO2 41 mmol/L (21-32); GLUCOSE 86 mg/dL (74-106); POTASSIUM 4.4 mmol/L (3.5-5.1); SODIUM 135 mmol/L (136-145)
--- NOTE | 2021-02-19 13:00 | NUR ---
CHIEF OPERATOR LOCK TENDER CHECKED IN ON PATIENT DURING LUNCH MEAL OF REGULAR SOLIDS. MASTICATION WAS ADEQUATE. NO OVERT S/S DURING OBSERVATION.
--- NOTE | 2021-02-19 19:09 | NUR ---
ASSUMED PT CARE AT SHIFT CHANGED , PT A/O X 4 , NO C/O PAIN, MEDS GIVEN PRESCRIBED, PT TAKES PILLS WHOLE WITH WATER SCHEDULED, VSS, SAFETY PRECAUTION MAINTAINED, REDNESS IN PERINEAL AREA , Z-GUARD APPLIED, HAD A BM, DARK GREEN , ADRYAN LE EDEMA IS IMPROVING , SBA, WITH GB AND FW, NO RESPIRATORY DISTRESS NOTED, NOW PT IS WEANED TO 1.5 L OF O2 WHICH IS WELL TOLERATED, WORKED WELL WITH PT/OT, GOOD APPETITE , FEELS COMFORTABLE AND SAFE, NO OTHER CONCERNS. WILL CONT' CURRENT THERAPY.
[2021-02-19 19:39] VITALS: BP 147/57
--- NOTE | 2021-02-19 22:58 | NUR ---
PT ASSESSMENT COMPLETED AND VSS. MEDS GIVEN ORDERED AND WELL TOLERATED. FALL PRECAUTIONS IN PLACE. UP TO THE BSC WITH ASST/GAIT. PT VERY ANXIOUS ABOUT GOING HOME ON FRIDAY. SHE STATES THAT SHE IS AFRAID THAT SHE WILL NOT BE ABLE TO GET TO THE BATHROOM AND THAT SHE MIGHT FALL. PROVIDED MUCH EMOTIONAL SUPPORT. ASST WITH REPOSITION FOR COMFORT. ZGUARD APPLIED TO BOTTOM. IV WAS CLOTTED OFF SO REMOVED. SAT WNL ON NC. SLEEPING WELL. WILL CONTINUE TO MONITOR FREUQENTLY.
[2021-02-20 08:00] VITALS: BP 147/51
--- NOTE | 2021-02-20 13:36 | NUR ---
Team meeting, o2 wean trial. Diet up grade to reg with thin liquids. Moderate to severe memory deficits. will need assist with medication and finances. Spouse will not be able to come in for training till day of dc. She is will needed, with slide board, drop are bsc, wheel chair, and shower tub bench possible need o2 if can not get weaned off o2. Dc moved to 03/02/21. [facility].
--- NOTE | 2021-02-20 14:43 | NUR ---
ASSUMED PT CARE AT SHIFT CHANGE, BEDSIDE REPORT RECEIVED, PT FOUND LAYED IN BED , ASSESSED CHARTED, A/O X 4, VSS WITH A LOW HR ( 51 B/MN) , PHYSICIAN SUPPORT COORDINATOR NOTIFIED METOPROLOL HELD PER VERBAL ORDER, LABS REVIEWED, MEDS GIVEN PER MAY, PT TAKES PILLS WHOLE WIH WATER, GOOD APPETITE, I/O'S WNL, MOOD STABLE, CALM AND COOPERATIVE, ALL SAFETY MEASURES IN PLACE, REMAINS ON 1L OF O2 , NO RESPIRATORY DISTRESS NOTED, O2 SAT ABOVE 94%, PLANNED TO WEAN TO RA TOLERATED, WORKED SUCCESSFULLY W PT/OT, UP WITH 1A, GB AND FWW, LE EDEMA CONTINUES TO GET BETTER, WILL CONT' MONITOR FOR CHANGE.
[2021-02-20 19:18] VITALS: BP 146/59
--- NOTE | 2021-02-21 04:10 | NUR ---
ASSUMED CARE AT 1930 OF 02/20. PATIENT IS A&OX4, DENIES PAIN OR SHORTNESS OF BREATH. ON CONTINUOUS 1L OF O2 TO KEEP O2Sat ABOVE 94%. LAXITIVE HELD AT HS BECAUSE PATIENT REPORTS HAVING MULTIPLE BM DURING THE DAY. METOPROLOL WAS ALSO HELD, PER PARAMETERS HOLD FOR HR <60 BPM, AND HR AT HS WAS 52 BPM. OTHER VITAL SIGNS ARE STABLE. FALL PRECAUTIONS IN PLACE, CALL LIGHT WITHIN REACH. WILL CONTINUE TO MONITOR.
[2021-02-21 07:15] VITALS: BP 166/59
--- NOTE | 2021-02-21 11:33 | NUR ---
PATIENT WAS IN BED ASLEEP WHEN CARE ASSUMED. WHEN AWAKEN, SHE IS ALERT, AND ORIENTED X 3-4 ABLE TO VOICE NEED. LUNG WITH DIMINISHED SOUND IN ALL LOBE, NO SOA/CYANOSIS NOTED. BS+X4, ABD SOFT, NON-TENDER TO TOUCH. PATIENT IS EATING MEALS, AND DRINKING FLUID WELL, ABLE TO FEED SELF. PATIENT TOOK ALL MEDICATION WHOLE WITHOUT DIFFICULTY, METOPROLOL 25MG HELD, DUE TO PULSE OF 57. 02 SAT 97%, [address] AT 1LITER N/C. PATIENT IS CALM, PLEASANT, COOPERATIVE WITH CARE. PATIENT TRANSFERS WITH STAND BY ASSIST AND WALKER, USES WHELLCHAIR FOR MOBILITY. NO SIGN OF ACUTE DISTRESS NOTED AT THIS TIME, CALL LIGHT IN REACH, WILL CONTINUE TO MONITOR.
[2021-02-21 19:27] VITALS: BP 163/65
--- NOTE | 2021-02-21 20:34 | NUR ---
ASSUMED CARE OF PT AT 1915. PT IS A&OX4. IS ON 1L O2/NC. IS STABLE. DENIES CHEST PAIN/DISCOMFORT/SOB AT THIS TIME. IS UP WITH 1-2 ASSIST, GB, WALKER TO BSC/BATHROOM. FALL PRECAUTIONS & HOURLY ROUNDING CONTINUED THIS SHIFT. REPORTS PAIN IN BILAT LES THAT IS BEING MANAGED WITH PAIN MEDS & OTHER THERAPUETIC TECHNIQUES. EDEMA NOTED. TEDS REMOVED SCD APPLIED. HEELS OFF LOADED. HEALING WOUND TO GLUTEAL FOLDS HEALING. BARRIER CREAM APPLIED. ON LOW AIR LOSS MATTRESS. TUNRED Q2H. LABS & VITALS REVIWED. TAKES MEDS WHOLE IN YOUGURT. PT IS READY FOR SLEEP. CALL LIGHT WITHIN REACH. WILL CONTINUE TO MONITOR. IS LEGALLY BLIND.
[2021-02-22 07:45] VITALS: BP 155/70
[2021-02-22 08:00] VITALS: BP 155/70
[2021-02-22 19:39] VITALS: BP 157/68
--- NOTE | 2021-02-23 00:50 | NUR ---
PT ASSESSMENT COMPLETED AND VSS. MEDS GIVEN ORDERED AND WELL TOLERATED. FALL PRECAUTIONS IN PLACE. UP TO THE BSC WITH ASST/GAIT. VOIDING MODERATE AMOUNT OF YELLOW URINE. SAT WNL ON RA EVEN WITH SPOT CHECKS. SLEEPING WELL. WILL CONTINUE TO MONITOR FREQUENTLY.
[2021-02-23 05:28] LABS: HEMOGLOBIN 8.1 gm/dL (12.0-15.0); MCH 25.7 pg (26.0-34.0); MCHC 32.3 g/dL (28.0-37.0); MCV 79.6 fL (80.0-100.0); PLATELET COUNT 199 thou/uL (150-400); RBC 3.15 mil/uL (4.20-5.00); RDW 21.8 % (10.5-14.5); WBC 16.8 thou/uL (4.0-11.0)
[2021-02-23 05:52] LABS: CALCIUM 8.6 mg/dL (8.5-10.1); CREATININE 0.9 mg/dL (0.6-1.0)
[2021-02-23 07:15] VITALS: BP 186/85
[2021-02-23 11:08] LABS: ANISOCYTOSIS 1+; HYPOCHROMASIA SLIGHT; POIKILOCYTOSIS SLIGHT
--- NOTE | 2021-02-23 11:38 | NUR ---
ASSUMED CARE AT 0700. PATIENT IS ALERT AND ORIENTED X4. PATIENT ALCALA'S, INFORMATION TECHNOLOGY AUDIT MANAGER ARE EQUAL. LUNGS ARE CLEAR AND DEMINISHED. 02 AT 1L PER N/C. ABD IS SOFT WITH BSX4. UP IN CHAIR FOR MEALS. Z-GUARD TO BOTTOM. FALL AND SAFETY PROTOCOLS IN IN PLACE. C/O PAIN IN HER LEGS. MEDICATED WITH PRN PAIN MED. CONTINUES TO PROGRESS SLOWLY TOWARDS D/C GOALS. WILL CONTINUE TO MONIER.
[2021-02-23 19:18] VITALS: BP 166/64
--- NOTE | 2021-02-24 04:24 | NUR ---
assumed care approx 1899 evening 02/23. pt lying in bed with head of bed elevated at change of shift. pt alert and oriented x4, pleasant and cooperative. pt stated she felt good and "I can see the light at the end of the tunnel". pt took hs meds with applesauce tolerating well. 02 at 1L per n/c. pt appears to be sleeping soundly. bed alarm on and call light in reach. will continue to monitor.
[2021-02-24 08:00] VITALS: BP 150/63
[2021-02-24 08:30] VITALS: BP 150/63
[2021-02-24 20:00] VITALS: BP 159/60
--- NOTE | 2021-02-25 02:22 | NUR ---
assumed care approx 1900 evening 02/24. pt sitting up in w/c at change of shift alert and oriented x4, pleasant and cooperative. 02 at 1L per n/c. pt assist up to toilet from w/c before hs. pt took hs meds with applesauce tolerating well. pt appears to be sleeping soundly. bed alarm on and call light in reach. will continue to monitor.
[2021-02-25 07:15] VITALS: BP 167/64
--- NOTE | 2021-02-25 17:20 | NUR ---
PT A&OX4. PT. DENIES PAIN. PT UP TO CHAIR WITH MOD ASSIST X1. VS CHARTED. PT WILLINGLY WORKS WITH THERAPY. ONCE PT IS UP PT GAIT IS STEADY. PT REMAINS ON 1L NC. WILL CONTINUE TO MONITOR.
[2021-02-25 19:44] VITALS: BP 164/76
[2021-02-26 05:24] LABS: HEMOGLOBIN 7.8 gm/dL (12.0-15.0); MCH 25.1 pg (26.0-34.0); MCHC 31.3 g/dL (28.0-37.0); MCV 80.3 fL (80.0-100.0); RBC 3.11 mil/uL (4.20-5.00); RDW 22.8 % (10.5-14.5); WBC 14.4 thou/uL (4.0-11.0)
[2021-02-26 05:53] LABS: CALCIUM 8.4 mg/dL (8.5-10.1); CREATININE 0.8 mg/dL (0.6-1.0); MAGNESIUM 1.9 mg/dL (1.8-2.4); POTASSIUM 3.5 mmol/L (3.5-5.1)
--- NOTE | 2021-02-26 05:57 | NUR ---
PT ALERT AND ORIENTED. QUIET AND WITH A SOMEWHAT FLAT AFFECT. DENIES PAIN.BLE ELEVATED FOR EDEMA. UP TO THE BSC X1,POOR ENDURANCE. SHE IS UNABLE TO REPOSITION AND LAY ON SIDE BECAUSE IT MAKES HER BREATHING DIFFICULT.DYSPNEA WITH EXERTION.VOIDING OKAY. CONTINENT.BARRIER CRM APPLIED TO SACRAL WOUND. MEDS TAKEN WELL WITH YOGHURT. AFEBRILE. NO COUGH NOTED. CALL LIGHT WITHIN REACH.
--- NOTE | 2021-02-26 06:52 | NUR ---
ALERT AND ORIENTED. VERY JAMUL. SWALLOWS MEDS OKAY WITH YOGHURT. DENIES PAIN. WALKS WELL TO THE BATHROOM WITH ROLLER WALKER. VOIDS OKAY, WITH SOME STRESS INCONTINENCE, DENIES SAMI. PLEASANT AND COOPERATIVE.
[2021-02-26 07:15] VITALS: BP 187/81
[2021-02-26 08:45] VITALS: BP 187/81
--- NOTE | 2021-02-26 12:35 | NUR ---
Nutrition: Pt seen per followup. Discharge delayed. Coccyx wound noted to be fragily healed per wound care on 02/12. Eating well, > 75% average of meals. ST follows for dysphagia precautions. BM 02/23. Stable weights on unit. Low nutrition risk.
--- NOTE | 2021-02-26 15:33 | NUR ---
PT A&OX4 BUT FORGETFUL AT TIMES. PT UP TO WC WITH MOD ASSIST. ONCE PT IS UP GAIT IS STEADY WITH SBA. PT DOES GET SOA ON EXERTION. PT REMAINS ON 1 TO 1.5L VIA NC. WILL CONTINUE TO MONITOR.
[2021-02-26 19:56] VITALS: BP 173/69
--- NOTE | 2021-02-27 04:07 | NUR ---
Alert and oriented. Assist x1 for transfers, Refused Miralax citing that she had a BM today. Pt is on /NC and she appears comfortable. Denies any nausea/headache/chestpain.Swallows meds whole very well with yoghurt.Fall prec in place, call light within reach.
[2021-02-27 07:15] VITALS: BP 182/90
--- NOTE | 2021-02-27 08:18 | NUR ---
PT UP TO W/C AFTER PHILLIP HOSE APPLIED BILATERAL. PT REFUSED TO USE BATHROOM BEFORE GETTING UP TO W/C. PT LE SWELLING IS DOWN. PT HAS COURSE CRACKLES TO LLL, SLIGHT CRACKLESTO RLL. PT DID HAVE SOB WITH EXERTION. PT HAS OXYGEN ON 1L NC.
--- NOTE | 2021-02-27 12:50 | NUR ---
team meeting, recommendation: mod to mas assist with sit to stand, 64ft fww with wheelchair following. slid board with min assist. More SOA with OT. mod memory and cog deficits. cxr ordered. Reg solid diet with thin liquid. [place] dc 03/02/21 with, slide board, wheelchair and fww, hh nurse only vs LTC . See how family training goes with her spouse on 03/02/21.
--- NOTE | 2021-02-27 15:32 | NUR ---
PT BP REMAINS IN 170'S SYSTOLIC. ADM HYRDOLAZINE 10MG PO FOR ELEVATED BP. NO DIZZINESS OR HEADACHE NOTED.
[2021-02-27 20:15] VITALS: BP 173/68
--- NOTE | 2021-02-28 02:04 | NUR ---
assumed care approx 1900 evening 02/27. pt sitting up in w/c at change of shift.pt alert and oriented x4, appropriate and cooperative. assisted pt into bed and pt took hs meds with no problems. pts BP high however too early to give Hydralazine prn at 1999. pt given scheduled Metoprolol as ordered. pt appears to be sleeping soundly. bed alarm on and call light in reach. will continue to monitor.
[2021-02-28 05:45] VITALS: BP 207/93
--- NOTE | 2021-02-28 06:06 | NUR ---
pt slept well throughout the night. pt awoken for early am meds and stated she did not feel so well. checked 02 sat and pt at 78% on room air. placed 02 2L per n/c on pt and sat went up to 94%. lowered 02 to 1L per n/c and sat stayed at 93-94%. pts BP elevated at 207/93, pulse 75. pt also c/o pain to lower legs bilaterally. pt given Hydralazine prn and [place] as ordered. pt stated she was feeling better. will continue to monitor.
[2021-02-28 06:51] VITALS: BP 189/87
[2021-02-28 07:15] VITALS: BP 184/60
--- NOTE | 2021-02-28 08:41 | NUR ---
PT SITTING UP TO W/C FOR BREAKFAST. PT PHILLIP MONAHAN APPLIED THIS AM. PT HAS SLIGHT EDEMA TO LE BILAT. PT ABLE TO TRANSFER FROM BED TO W/C X1 ASSIST. PT DENIES ANY PAIN AT THIS TIME. PT STATED SHE FEELS ANXIOUS ABOUT HER HEALTH DUE TO BEING IN THE HOSPITAL FOR 2 MONTHS. PT HAS OXYGEN ON 2L NC. PT HAS CRACKLES TO BASES. PT ENCOURAGED TO USE IS AND FLUTTER VALVE. PT IS LEGALY BLIND. PT UP TO BATHROOM TO VOID.
[2021-02-28 13:30] VITALS: BP 156/61
[2021-02-28 13:33] VITALS: BP 166/59
--- NOTE | 2021-02-28 14:44 | NUR ---
Desktop Support Specialist left message for pt's spouse Damon to contact regarding dc planning for Friday. Spouse will need to come in for training. Geovany DONNELLY may be able to do some pati visits and or pt/spouse to consider ltc placement somewhere close to [place]. Will follow.
[2021-02-28 19:52] VITALS: BP 141/62
--- NOTE | 2021-03-01 00:06 | NUR ---
PT ALERT AND ORIENTED X 4. PT UP IN RECLINER IN EVENING. TRANSFERRED TO BED AT HS WITH ASSIST X 1. 02 ON AT 2L PER NC. PT TAKES MEDS WITH APPLESAUCE WITHOUT DIFFICULTY. PT DENIES PAIN OR DISCOMFORT. BED ALARM ON FOR SAFETY. PT APPEARS TO BE SLEEPING ON HOURLY ROUNDS.
[2021-03-01 08:00] VITALS: BP 152/52
[2021-03-01 09:15] VITALS: BP 152/52
--- NOTE | 2021-03-01 13:43 | NUR ---
Kalyan visited with sb spouse barrera, he stated not sure if i have a ride tomorrow to get her but i will try. she has home o2 tank, wheel chair- arms do not drop down. Have a bsc already per barrera. Kalyan passed on information to GLOBAL IMPLEMENTATION MANAGER and bedside nurse. DME to be arranged for dc home tomorrow. Provider camila is not in network with her [place]. Not found dme company that has in stock wheelchair or hh that will accept.
--- NOTE | 2021-03-01 16:57 | NUR ---
Cont. to try and found hh in [place] that takes [facility] medicaid. spoke with gail at [employer], wheelchair is covered, not the slid board. Home oxgen is covered. carlie abel and am home pt in net work. Have not located dme company that has a wheelchair yet. CM ok to vouch for slide board for dc. Then spoke with edgar in [facility] for [place] [facility], cm had to provide cpt codes for each service requested (pt, st, bath aid and nurse) to found out that they can not give preauth till have npi for the accepting hh company. [facility] does not take her insurance. Cm faxed referral to [facility], their office is already closed, will follow up tomorrow. CPT coders for hh ( [id number],[id number],T1021, G0151,[id number],[id number], and [id number]).
[2021-03-01 19:55] VITALS: BP 164/71
--- NOTE | 2021-03-02 06:08 | NUR ---
03-01-21 CARE TRANSFERRED 1899. PT AAOX4, VSS, RR EVEN AND NONLABORED ON L2 O2 NC. LUNGS CLEAR/DIMISHED, HT RR, ABD SOFT AND ACTIVE. DURING MEDICATION ADMIN PT HAD NO DIFFICULTIES TAKING WHOLE WITH WATER; PT REPORTED PAIN IN BLE AND MANAGED WITH PRN MEDICATION. UPON REASSESSMENT PT WAS RESTING WITH EYES CLOSED. PT HAS BEEN CALM AND COOPEATIVE AND COMMUNICATES NEEDS WITH EASE.
[2021-03-02 08:00] VITALS: BP 169/65
[2021-03-02] MEDS ORDERED: IPRAT-ALBUT 0.5-3 ML INH (11:36)
[2021-03-02] MEDS ORDERED: PULMICORT0.5 MG/22 INH (11:36)
[2021-03-02] MEDS ORDERED: KLOR-CON 1010 MEQ PO (11:36)
[2021-03-02] MEDS ORDERED: VITAMIN B-12500 MCG PO (11:36)
[2021-03-02] MEDS ORDERED: MUCINEX600 MG PO (11:36)
[2021-03-02] MEDS ORDERED: PACERONE 200 M200 M1 PO (11:36)
[2021-03-02] MEDS ORDERED: TIMOLOL MA0.25 %/52 OPHTHALMIC (11:36)
[2021-03-02] MEDS ORDERED: METOPROLOL TART25 MG PO (11:36)
[2021-03-02] MEDS ORDERED: MIRALAX17 GM PO (11:36)
[2021-03-02] MEDS ORDERED: PROTONIX 20 MG20 MG PO (11:36)
[2021-03-02] MEDS ORDERED: LIPITOR40 MG PO (11:36)
[2021-03-02] MEDS ORDERED: TORSEMIDE20 MG PO (11:36)
[2021-03-02] MEDS ORDERED: FOLIC ACID1 MG PO (11:36)
[2021-03-02] MEDS ORDERED: BAYER CHEWABLE81 MG PO (11:36)
[2021-03-02] MEDS ORDERED: VITAMIN D250 MCG PO (11:39)
[2021-03-02 12:37] VITALS: BP 169/65
--- NOTE | 2021-03-02 13:34 | NUR ---
[facility], [facility], [facility], [place], [facility] to not accept her insurance for hh needs. [facility] is going to accept for hh needs. Kalyan spoke with Matheus at [employer] [place] med[place], auth number for hh is # [id number]. Darren will supply her home oxygen and nebulizer btx at home. vouched for the slide board and provider plus already delivered it for [place] this evening. Martina will talk home the loaner wheel chair to be sent with her at [place].
[2021-03-02 15:17] VITALS: BP 169/65
--- NOTE | 2021-03-02 16:39 | NUR ---
I have reviewed the documentation by SHIVAM OLIVARES from 02/28/21 to 03/02/21 and I concur with it. FRANKLYN TRONCOSO
--- NOTE | 2021-03-02 18:05 | NUR ---
DISCHARGE SUMMARY AND H&P HAVE BEEN FAXED TO DR. BARRERA AT [facility] PER ELECTRIC METER REPAIRER APPRENTICE ORDERS.
--- NOTE | 2021-03-02 19:48 | NUR ---
PATIENT EDUCATION GIVEN TO PATIENT AND HER . THEIR NEICE "DOESN'T COME INTO HOSPITALS." PATIENT'S AND PT REASSURED RN SEVERAL TIMES THAT THEY WOULD BE "FINE" AT HOME, AND THEY HAVE A COMMODE, WALKER, AND WILL BE ABLE TO MANAGE HER BASIC NEEDS, DESPITE RN ATTEMPTS AT EDUCATION REGARDING SLIDE BOARD TRANSFERS, BED MOBILITY, SIT TO STAND ASSIST, ETC. PT'S IS VISIBLY DEBILITATED, BUT DID ASSIST PT OFF THE TOILET THIS EVENING ON HIS OWN. PT STATED THAT SHE DOESN'T HAVE GRAB BARS IN HER BR, AND THAT SHE WILL USE THE COMMODE UNTIL THEY GET SOME PUT UP. SHE STATED PLAN TO CALL TO MAKE HER APPOINTMENTS AND THESE WERE HIGHLIGHTED ON THEIR DC INSTRUCTIONS. PT WILL HAVE HH IN THE NEXT COUPLE OF DAYS. PT AND VERBALIZED THAT THEY WOULD CHIMNEY MECHANIC HER MEDICATIONS IN THE MORNING FROM THE PHARMACY, AND WRITTEN EDUCATION WAS PROVIDED REGARDING EACH NEW MED. WRITTEN EDUCATION AND TEACH-BACK METHOD DEMONSTRATED REGARDING PRESSURE ULCER PREVENTION AND WOUND CARE.
--- NOTE | 2021-03-02 19:58 | NUR ---
SLEEP CARE HAS BEEN NOTIFIED OF PATIENT'S DISCHARGE TO HOME, AND THEY ARE ON THEIR WAY TO THE HOUSE NOW.
--- NOTE | 2021-03-04 12:19 | HC ---
[facility] [place] [address] CONSULTATION Name: DIONICIO TELLEZ Room #: 506-1 [facility] M.R.#: [id number] Admission: 02/06/21 Attend Phys: Rick Mcdaniel MD Discharge: 03/02/21 Date of : 56 Report #: [id number] THIS REPORT FOR: cc: Carla Devi MD, Ashley L. MD Deutch,Alex Duron. PhD ~ DATE OF SERVICE: 02/23/2021 NEUROBEHAVIORAL STATUS EXAM ATTENDING PHYSICIAN: Rick Mcdaniel M.D. BORING MACHINE FEEDER: Alex Prieto, PhD CLINICAL PRESENTATION: The patient is a 60-year-old female admitted to [facility] for a comprehensive inpatient rehabilitation program. She was initially admitted to the [facility] on 01/09/2021 with shortness of breath and intermittent lower extremity weakness for the past 6 months. She had a complicated course with a cardiac arrest on 01/14/2021 that required intubation. The patient carries a past medical history of breast cancer, right mastectomy, status post laminectomy, legally blind, glaucoma, depression and a history of thyroid cyst. Her assessment on admission to the rehabilitation unit is critical illness myopathy, cardiopulmonary failure, dysphagia, hypertension, anorexia on Marinol, new onset atrial fibrillation, acute on chronic renal failure, history of tobacco abuse and prior history of breast cancer. A complete description of her medical condition and history can be found in her medical record. Neuropsychological consultation was requested to provide assistance in the assessment of cognitive and emotional status and provide recommendations and services. Prior to this most recent admission, she reports living independently at home with her spouse. She has an 8th grade education without having been employed because of blindness. She does not have children and is from a family with two brothers and two sisters. One brother is . Her has been helping in the management of medications and aspects of IADLs. TECHNIQUES UTILIZED: Clinical interview, review of medical records, staff consultation and behavioral observation, mini mental status exam 2 standard version. EXAMINATION FINDINGS: The patient was alert and cooperative with the assessment. She was uncertain regarding the reason for her hospitalization and does not report a specific condition that requires treatment. She has a past history of treatment for anxiety, but does report problems with anxiety or [address] [address] CONSULTATION Name: DIONICIO TELLEZ Room #: [facility] [place] [address]#: [id number] Admission: 02/06/21 Attend Phys: Rick Mcdaniel MD Discharge: 03/02/21 Date of : 56 Report #: [id number] depression currently. Her sleep, appetite, memory and word finding are reported as within normal limits. Her primary concern is weak legs and decreased mobility. She does not report a history of alcohol or marijuana use. She does abuse tobacco to an extent of one and a half pack per day as estimate. Her performance on the MMSE 2 brief version was in the low average range with a raw score of 13/16. She was 3/3 for initial registration, 5/5 for orientation to time, 3/[address] and 2/3 for immediate recall of 3 items after a brief time delay and distraction. Performance on the MMSE 2 standard version was 22/30, which is a T-score of 40 and percentile rank of 16. She was 1/5 for serial sevens, 2/2 for naming, 1/1 for repetition, 3/3 for auditory comprehension. She was able to read and follow a single command. She was able to dictate a sentence. Writing and copying task could not be completed because of visual disturbance. Variability in cognition is suggested with difficulty will be with sustained attention and concentration. 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 The use of compensatory strategies will be helpful in order to compensate for an impaired cognition. Family education will be helpful to assist in improved understanding of the limitations of her cognitive functioning and to clarify the extent to which help is needed prior to this most recent medical event. Thank you very much for allowing me to provide the consultation on this patient. <ELECTRONICALLY SIGNED> By: Alex Prieto, PhD 03/04/21 [id number] Alex Prieto, PhD /nt
== END 2021-03-02 19:00 | disposition home health service (06) | DRG 91 ==
PROVIDERS: Hospitalist; Internal Medicine; Nurse Practitioner; Nurse Practitioner Adult Health; Nurse Practitioner Family; ADMIT Physical Medicine & Rehabilitation; ATTEND Physical Medicine & Rehabilitation
PROC: 5A0945A Assistance with Respiratory Ventilation, 24-96 Consecutive Hours, High Flow/Velocity Cannula (ICD-10-PCS; principal; 2021-02-14)
DX: G72.81 Critical illness myopathy (principal); L89.153 Pressure ulcer of sacral region, stage 3; J96.21 Acute and chronic respiratory failure with hypoxia; I50.33 Acute on chronic diastolic (congestive) heart failure; G93.41 Metabolic encephalopathy; J69.0 Pneumonitis due to inhalation of food and vomit; B37.0 Candidal stomatitis; N17.9 Acute kidney failure, unspecified; E46 Unspecified protein-calorie malnutrition; I48.92 Unspecified atrial flutter; N39.0 Urinary tract infection, site not specified; I13.0 Hypertensive heart and chronic kidney disease with heart failure and stage 1 through stage 4 chronic kidney disease, or unspecified chronic kidney disease; R53.81 Other malaise; R13.10 Dysphagia, unspecified; D64.9 Anemia, unspecified; N18.9 Chronic kidney disease, unspecified; E78.5 Hyperlipidemia, unspecified; I48.91 Unspecified atrial fibrillation; J44.9 Chronic obstructive pulmonary disease, unspecified; R63.0 Anorexia; F41.9 Anxiety disorder, unspecified; R41.9 Unspecified symptoms and signs involving cognitive functions and awareness; F32.9 Major depressive disorder, single episode, unspecified; D69.6 Thrombocytopenia, unspecified; K59.00 Constipation, unspecified; B96.20 Unspecified Escherichia coli [E. coli] as the cause of diseases classified elsewhere; B96.1 Klebsiella pneumoniae [K. pneumoniae] as the cause of diseases classified elsewhere; D72.829 Elevated white blood cell count, unspecified; Z85.3 Personal history of malignant neoplasm of breast; Z90.11 Acquired absence of right breast and nipple; Z68.31 Body mass index [BMI] 31.0-31.9, adult; Z71.6 Tobacco abuse counseling; Z79.82 Long term (current) use of aspirin; Z79.899 Other long term (current) drug therapy; Z23 Encounter for immunization
CPT/HCPCS: 10112